=== PATIENT | male | born 1995 | race Caucasian/White ===

== ENCOUNTER 2018-02-05 14:32 | Emergency (ER) | payer OTHER ==
[2018-02-05] MEDS: NS 1,000 ML IV ×2 (15:52→17:00)
[2018-02-05 15:59] LABS: BASO % 0.5 % (0.0-1.0); HEMATOCRIT 42.2 % (42.0-52.0); HEMOGLOBIN 14.6 g/dl (13.5-17.5); IMMATURE GRANULOCYTE % 0.2 % (0-3.0); LYMPH # 0.7 10^3/uL (1.5-6.5); LYMPH % 17.4 % (24.0-44.0); MEAN CORPUSCULAR HEMOGLOBIN 29.7 pg (27.0-33.0); MEAN CORPUSCULAR HGB CONC 34.6 g/dl (32.0-36.5); MEAN CORPUSCULAR VOLUME 85.9 fl (80.0-96.0); MONO # 0.4 10^3/uL (0.0-0.8); MONO % 8.7 % (0.0-5.0); NEUTROPHILS # 3.1 10^3/uL (1.8-7.7); NEUTROPHILS % 73.2 % (36.0-66.0); PLATELET COUNT, AUTOMATED 102 10^3/uL (150-450); RED BLOOD COUNT 4.91 10^6/uL (4.30-6.10); RED CELL DISTRIBUTION WIDTH 12.2 % (11.5-14.5); WHITE BLOOD COUNT 4.3 10^3/uL (4.0-10.0)
[2018-02-05 16:00] LABS: KETONE, URINE AUTO RFX 1+ mg/dL (NEGATIVE); LEUKOCYTE ESTERASE UR AUTO RFX NEGATIVE (NEGATIVE); MUCUS, URINE RFX SMALL (NEGATIVE); NITRITE, URINE AUTO RFX NEGATIVE (NEGATIVE); RBC, URINE AUTO RFX 3 /HPF (0-3); SPECIFIC GRAVITY UR AUTO RFX 1.015 (1.002-1.035); SQUAM EPITHELIAL CELL UR AURFX 0 /HPF (0-6); WBC, URINE AUTO RFX 1 /HPF (0-3)
[2018-02-05 16:07] LABS: INR 1.36
[2018-02-05 16:08] LABS: PARTIAL THROMBOPLASTIN TIME 33.9 SECONDS (25.4-37.6)
[2018-02-05 16:21] LABS: ALBUMIN 3.4 GM/DL (3.2-5.2); ALBUMIN/GLOBULIN RATIO 0.94 (1.00-1.93); ALKALINE PHOSPHATASE 103 U/L (45-117); ALT/SGPT 106 U/L (12-78); AMYLASE 22 U/L (25-115); ANION GAP 11 MEQ/L (8-16); AST/SGOT 56 U/L (7-37); BILIRUBIN,DIRECT 0.2 MG/DL (0.0-0.2); BILIRUBIN,TOTAL 0.6 MG/DL (0.2-1.0); BLOOD UREA NITROGEN 11 MG/DL (7-18); CALCIUM LEVEL 8.4 MG/DL (8.5-10.1); CARBON DIOXIDE LEVEL 26 MEQ/L (21-32); CHLORIDE LEVEL 101 MEQ/L (98-107); CREATININE FOR GFR 1.35 MG/DL (0.70-1.30); GLOMERULAR FILTRATION RATE > 60.0 (>60); GLUCOSE, FASTING 103 MG/DL (70-100); LIPASE 72 U/L (73-393); POTASSIUM SERUM 3.7 MEQ/L (3.5-5.1); SODIUM LEVEL 138 MEQ/L (136-145)
[2018-02-05 16:22] LABS: LACTIC ACID SEPSIS PROTOCOL 1.1 MMOL/L (0.4-2.0)
[2018-02-05 16:38] LABS: CPK CREATINE PHOSPHOKINASE 63 U/L (39-308)
[2018-02-05] MEDS ORDERED: ACETAMINOPHEN 325 MG TAB As Ordered (16:55)
[2018-02-05] MEDS: ACETAMINOPHEN 325 MG/10.15 ML UDC PO (17:00)
[2018-02-05] MEDS: KETOROLAC 30 MG/ML VIAL (J1885) IV (17:00)
[2018-02-05 17:09] LABS: CONTROL LINE MONO INT CTR LINE PRESENT; MONO SCRN NEGATIVE (NEGATIVE)
[2018-02-05] MEDS: PERCOCET 5MG/325MG TAB PO (18:52)
[2018-02-05] MEDS: DOXYCYCLINE HYCLATE 100 MG TAB PO (19:30)
[2018-02-05] MEDS: NORCO 5/325MG TABLET (BULK FOR ED) PO (19:30)
[2018-02-12 00:06] LABS: DENGUE FEVER IgG AB 2.06 ISR (<1.65); DENGUE FEVER IgM AB 1.17 ISR (<1.65)
== END 2018-02-05 21:46 | disposition home or self-care (01) ==
LOC: M ED 21:46
DX: J18.8 Other pneumonia, unspecified organism (principal)
CPT/HCPCS: J1885